=== PATIENT | female | born 1955 | race Caucasian/White ===

== ENCOUNTER 2017-10-10 15:55 | Emergency (ER) | payer OTHER ==
[~2017-10-10] VITALS: Ht 157.5 cm; Wt 96.7 kg
[~2017-10-10 15:55] MED LIST: ASPI325T17 PO; CHOL500050 PO; CYCL-259 PO; DIPH25CA61 PO; GABA300C10 PO; HYDR-3307 PO; LEVO100T5 PO; LIOT5TAB3 PO; MELA5TAB19 PO; OXYC-302 PO; PARI1CAP3 PO; SIMV20TA3 PO; TRAM50TA2 PO
[2017-10-10 15:56] VITALS: BP 161/87
[2017-10-10] MEDS ORDERED: ONDANSETRON ODT 4 MG ONE (17:56)
[2017-10-10] MEDS ORDERED: OXYcodone/APAP 5/325MG TABLET ONE (17:56)
[2017-10-10] MEDS ORDERED: OXYcodone/APAP 5/325MG TABLET PO ONE (18:00)
[2017-10-10] MEDS ORDERED: ONDANSETRON ODT 4 MG PO ONE (18:00)
== END 2017-10-10 19:11 | disposition home or self-care (01) ==
LOC: ED 18:20
DX: S16.1XXA Strain of muscle, fascia and tendon at neck level, initial encounter (principal); S29.012A Strain of muscle and tendon of back wall of thorax, initial encounter; S79.911A Unspecified injury of right hip, initial encounter; M54.6 Pain in thoracic spine; M51.34 Other intervertebral disc degeneration, thoracic region; V43.52XA Car driver injured in collision with other type car in traffic accident, initial encounter; Y93.89 Activity, other specified; Y92.89 Other specified places as the place of occurrence of the external cause; Y99.8 Other external cause status
CPT/HCPCS: 70450; 72072; 72125; 73502; 99284; Q0162

== ENCOUNTER 2018-03-07 13:29 | Emergency (ER) | payer MEDICARE, OTHER ==
[~2018-03-07] VITALS: Ht 157.5 cm; Wt 89.5 kg
[2018-03-07 13:32] VITALS: BP 151/104
[2018-03-07 14:23] LABS: BASOPHILS # (AUTO) 0.02 x10^3/uL (0-0.1); BASOPHILS % (AUTO) 0 % (0-1); EOSINOPHILS # (AUTO) 0.04 x10^3/uL (0-0.4); EOSINOPHILS % (AUTO) 0 % (1-7); LYMPHOCYTES # (AUTO) 2.32 x10^3/uL (1-3.4); LYMPHOCYTES % (AUTO) 19 % (22-44); MD NO; MEAN CORPUSCULAR HEMOGLOBIN 32.3 pg (27.0-34.8); MEAN CORPUSCULAR HGB CONC 33.3 g/dL (32.4-35.8); MEAN CORPUSCULAR VOLUME 96.8 fL (80-100); MEAN PLATELET VOLUME 8.7 fL (7.4-10.4); MONOCYTES # (AUTO) 0.32 x10^3/uL (0.2-0.8); MONOCYTES % (AUTO) 3 % (2-9); NEUTROPHILS # (AUTO) 9.29 x10^3/uL (1.8-6.8); NEUTROPHILS % (AUTO) 77 % (42-75); PLATELET COUNT 295 x10^3/uL (130-400); RED BLOOD COUNT 5.38 x10^6/uL (3.82-5.3); RED CELL DISTRIBUTION WIDTH 14.4 % (9.6-15.2)
[2018-03-07 14:34] LABS: ALBUMIN 4.1 g/dL (3.4-5.0); ANION GAP 10 mmol/L (5-15); CALCIUM 9.2 mg/dL (8.5-10.1); CHLORIDE 106 mmol/L (98-107)
[2018-03-07 14:39] LABS: ALANINE AMINOTRANSFERASE 31 U/L (12-78); ALKALINE PHOSPHATASE 92 U/L (45-117); BILIRUBIN,TOTAL 0.5 mg/dL (0.2-1.0); CREATININE 1.14 mg/dL (0.55-1.02)
[2018-03-07 16:26] LABS: MICROSCOPIC INDICATED
[2018-03-07 16:37] LABS: CULTURE INDICATED? YES
== END 2018-03-07 17:36 | disposition home or self-care (01) ==
LOC: ED 15:13
DX: S00.93XA Contusion of unspecified part of head, initial encounter (principal); S30.1XXA Contusion of abdominal wall, initial encounter; S30.0XXA Contusion of lower back and pelvis, initial encounter; E07.9 Disorder of thyroid, unspecified; Z90.710 Acquired absence of both cervix and uterus; Y04.8XXA Assault by other bodily force, initial encounter; Y93.89 Activity, other specified; Y99.8 Other external cause status; Y92.009 Unspecified place in unspecified non-institutional (private) residence as the place of occurrence of the external cause
CPT/HCPCS: 36415; 71046; 80053; 81001; 85025; 87086; 99285